=== PATIENT | female | born 1935 | race Caucasian/White ===

== ENCOUNTER 2016-11-15 04:18 | Emergency (ER) | payer OTHER, MEDICARE ==
[~2016-11-15 04:18] MED LIST: ACTONEL35 MG PO; CIPRO 500MG TA500 MG PO; CIPRO XR500 MG PO; COZAAR 100MG T100 MG PO; KEFLEX500 MG PO; METOPROLOL TART50 MG PO; SIMVASTATIN20 MG PO; VITAMIN D1000 IU PO; XARELTO20 MG PO
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
--- NOTE | 2016-11-15 05:05 | RADIOLOGY REPORT ---
EXAMINATION: XR PORTABLE CHEST CLINICAL INFORMATION: Syncope COMPARISON: 04/25/2015 TECHNIQUE: Portable frontal view of the chest was obtained. FINDINGS: Cardiac leads overlie the chest. The lungs are well expanded. There is no focal consolidation, edema, or effusion. No pneumothorax. The cardiomediastinal silhouette is normal in size. Aortic calcifications noted. No acute osseous abnormality. IMPRESSION: No acute pulmonary findings.
[2016-11-15 05:29] LABS: ABSOLUTE BASOPHIL COUNT 0 /CUMM (0.0-0.2); ABSOLUTE EOSINOPHIL COUNT 0 /CUMM (0.0-0.7); ABSOLUTE GRANULOCYTE CT 14.5 /CUMM (1.4-6.5); ABSOLUTE LYMPH COUNT 0.9 /CUMM (1.2-3.4); ABSOLUTE MONOCYTE COUNT 0.3 /CUMM (0.10-0.60); BASOPHIL % 0 % (0.0-2.0); EOSINOPHIL % 0 % (0-5); MEAN CORPUSCULAR HGB CONC 33.2 G/DL (33.0-37.0); MEAN CORPUSCULAR VOLUME 90.2 FL (81.0-99.0); MEAN PLATELET VOLUME 9.2 FL (7.4-10.4); PLATELET COUNT 207 /CUMM (130-400); RBC DISTRIBUTION WIDTH 13.3 % (11.5-14.5); RED BLOOD CELL CT 4.99 /CUMM (4.20-5.40); WHITE BLOOD CELL COUNT 15.7 /CUMM (4.8-10.8)
[2016-11-15 05:46] LABS: GRANULOCYTE % 92.2 % (42.2-75.2)
--- NOTE | 2016-11-15 05:48 | CT SCAN REPORT ---
EXAMINATION: CT ABDOMEN AND PELVIS WITHOUT CONTRAST CLINICAL INFORMATION: Abdominal distention COMPARISON: None TECHNIQUE: Multidetector volumetric imaging was performed from the superior aspect of the liver through the pubic symphysis. Sagittal and coronal reformatted images were obtained on the technologist's workstation. DLP: 293 mGy-cm FINDINGS: LUNG BASES: The lung bases are clear. Coronary artery calcifications are noted. LIVER, GALLBLADDER, AND BILIARY TREE: The liver is normal in size, shape, and attenuation. There is a 2 cm cyst in the left lobe of the liver anteriorly. Additional smaller hypoattenuating foci are seen which are too small to characterize. No ductal dilatation noted. The gallbladder is unremarkable with no evidence of radiopaque gallstones, gallbladder wall thickening, or obvious pericholecystic inflammatory changes. PANCREAS: Unremarkable. SPLEEN: Calcification noted in the spleen. The spleen is otherwise unremarkable. ADRENAL GLANDS: Unremarkable. KIDNEYS AND URETERS: The kidneys are normal in size, shape, and attenuation. No hydronephrosis or hydroureter. No perinephric stranding. 0.2 cm right lower pole calculus. There is a 1.7 cm right midpole renal cyst. BLADDER: Unremarkable. GASTROINTESTINAL TRACT: The stomach is unremarkable. The small bowel is nondilated. Somewhat fluid filled bowel throughout its course. No definite inflammatory changes are seen. Normal appendix. No colonic wall thickening. Fluid is seen throughout the right hemicolon as well with much of the left hemicolon decompressed. No free air. Trace pelvic free fluid. ABDOMINAL WALL: No significant hernia is appreciated. LYMPH NODES: Normal. VASCULAR: Mild atherosclerotic calcifications. PELVIC VISCERA: No adnexal mass. The uterus is not seen. OSSEOUS STRUCTURES: No acute or suspicious osseous abnormality. Degenerative changes of the spine. Sclerosis along the left sacrum may be from chronic sacral insufficiency. Degenerative changes of the hips. IMPRESSION: Fluid-filled small bowel without abnormal dilatation or definite inflammatory change. Enteritis could still have this appearance. Tiny nonobstructing right lower pole renal calculus. Additional chronic appearing findings as above.
[2016-11-15] MEDS ORDERED: LOMOTIL 2.5-0.1 EACH PO ×2 (06:13→06:16)
[2016-11-15] MEDS ORDERED: ZOFRAN ODT4 M1 SL ×2 (06:13→06:16)
[2016-11-15 07:13] VITALS: BP 108/60
== END 2016-11-15 07:13 ==
LOC: ERH 04:18
PROVIDERS: Pediatrics
DX: K52.9 Noninfective gastroenteritis and colitis, unspecified (principal)
CPT/HCPCS: 74176; 93005; 93010; 96361; 96374; 96375; J2405